=== PATIENT | male | born 1980 | race Caucasian/White ===

== ENCOUNTER 2020-12-22 18:59 | Emergency (ER) | payer OTHER ==
[~2020-12-22] VITALS: Ht 172.7 cm; Wt 73.5 kg
[2020-12-22 19:01] VITALS: BP_SYST 141
[2020-12-22] MEDS ORDERED: KETOROLAC TROMETHAMINE 60 MG/2 ML VIAL IM ONE (19:15)
[2020-12-22] MEDS ORDERED: MORPHINE 4 MG INJ. 4 MG/ML VIAL IM ONE (19:15)
--- NOTE | 2020-12-22 19:25 | NUR ---
Patient to ER bed 4 to gown for evaluation. Side rails up.
--- NOTE | 2020-12-22 19:40 | NUR ---
Dr. Holguin bedside for pt eval
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
--- NOTE | 2020-12-22 20:35 | NUR ---
Portable bedside X Rays , well tolerated
--- NOTE | 2020-12-22 21:35 | NUR ---
VSS, CT Scan well tolerated
[2020-12-22] MEDS ORDERED: HYDR-3917 PO ×2 (22:16→22:18)
[2020-12-22] MEDS ORDERED: IBUP-1969 PO (22:16)
[2020-12-22 22:30] VITALS: BP_SYST 132
--- NOTE | 2020-12-22 22:30 | NUR ---
Patient given written and verbal discharge instructions and verbalizes understanding. ER MD discussed with patient the results and treatment provided. Patient in stable condition. ID arm band removed. Rx of [place] and Ibuprofen given. Patient educated on pain management and to follow up with PMD. Pain Scale 0/10 Opportunity for questions provided and answered. Medication side effect fact sheet provided.
== END 2020-12-22 22:30 | disposition home or self-care (01) ==
LOC: SED 18:59
DX: S43.101A Unspecified dislocation of right acromioclavicular joint, initial encounter (principal); V86.56XA Driver of dirt bike or motor/cross bike injured in nontraffic accident, initial encounter; Y93.89 Activity, other specified; Y92.89 Other specified places as the place of occurrence of the external cause; Y99.8 Other external cause status
CPT/HCPCS: 70450; 71045; 71100; 73030; 76376; 96372; 99284; J1885; J2270

== ENCOUNTER 2021-12-21 10:59 | Emergency (ER) | payer OTHER ==
[~2021-12-21] VITALS: Ht 172.7 cm; Wt 68.0 kg
[~2021-12-21 10:59] MED LIST: IBUP-1969 PO
[2021-12-21 11:00] VITALS: BP_SYST 145
[2021-12-21] MEDS ORDERED: LIDOCAINE PATCH 5% 1 EA TP ONE (12:45)
[2021-12-21] MEDS ORDERED: ACETAMINOPHEN 500 MG TABLET PO ONE (12:45)
[2021-12-21] MEDS ORDERED: KETOROLAC TROMETHAMINE 30 MG VIAL IM ONE (12:45)
[2021-12-21] MEDS ORDERED: ACET-2634 PO (14:20)
[2021-12-21] MEDS ORDERED: NAPR-690 PO (14:20)
[2021-12-21 14:42] VITALS: BP_SYST 136
== END 2021-12-21 14:42 | disposition home or self-care (01) ==
LOC: SED 10:59
DX: M54.50 Low back pain, unspecified (principal); I10 Essential (primary) hypertension; Z79.899 Other long term (current) drug therapy
CPT/HCPCS: 99283; 96372; J1885

== ENCOUNTER 2022-04-26 04:21 | Emergency (ER) | payer OTHER ==
[~2022-04-26] VITALS: Ht 172.7 cm; Wt 72.6 kg
[~2022-04-26 04:21] MED LIST changes: +ACET-2634 PO; +NAPR-690 PO
--- NOTE | 2022-04-26 04:35 | NUR ---
Patient to ER bed 07 to gown for evaluation. Side rails up. Report given to DINH PAZ.
[2022-04-26 04:38] VITALS: BP_SYST 154
--- NOTE | 2022-04-26 04:50 | NUR ---
ER Dr. Rose at bedside examining patient.
[2022-04-26] MEDS ORDERED: ALBUTEROL SULFATE 0.083% 2.5 MG/3 ML VIAL.NEB INH ONE (05:00)
[2022-04-26] MEDS ORDERED: ALBMDI INH (05:11)
[2022-04-26] MEDS ORDERED: CETI10CA PO (05:11)
[2022-04-26] MEDS ORDERED: GUAI-723 PO (05:11)
--- NOTE | 2022-04-26 05:21 | NUR ---
# 20 gauge angiocath placed to L AC. Use of asceptic technique. Opsite placed over site. Blood return noted. Blood for lab drawn from site sent to lab. Flushed with 10 cc of normal saline. No evidence of infiltration noted. Patient tolerated well.
[2022-04-26 05:46] LABS: BASOPHILS # (AUTO) 0.1 K/uL (0.0-0.2); EOSINOPHILS # (AUTO) 0.2 K/uL (0.0-0.4); HEMATOCRIT 40.2 % (36-54); HEMOGLOBIN 13.6 g/dL (14.0-18.0); LYMPHOCYTES % (AUTO) 28.2 % (20.5-51.5); MEAN CORPUSCULAR HEMOGLOBIN 31 pg (27-31); MEAN CORPUSCULAR HGB CONC 34 % (32-36); MEAN CORPUSCULAR VOLUME 92 fL (79.0-98.0); MONOCYTES # (AUTO) 0.8 K/uL (0.0-1.0); MONOCYTES % (AUTO) 7.4 % (1.7-9.3); NEUTROPHILS # (AUTO) 6.6 K/uL (1.8-7.7); NEUTROPHILS % (AUTO) 61.4 % (40.0-70.0); PLATELET COUNT (AUTO) 310 K/uL (130-430); RED BLOOD CELL COUNT(AUTO) 4.36 MIL/uL (4.2-6.2); RED CELL DISTRIBUTION WIDTH 13.5 % (9.0-15.0); WHITE BLOOD COUNT (AUTO) 10.7 K/uL (4.8-10.8)
[2022-04-26 05:57] LABS: STREPTOCOCCUS A SCREEN (RAPID) NEGATIVE (NEGATIVE)
[2022-04-26 06:22] LABS: ANION GAP 11 (5-15); CALCIUM 8.7 mg/dL (8.4-11.0); CHLORIDE 106 mmol/L (98-107); CREATININE 0.85 mg/dL (0.55-1.30); GLUCOSE 115 mg/dL (70-99); UREA NITROGEN, BLOOD 12 mg/dL (8-21)
[2022-04-26 06:24] LABS: GFR AFRICAN AMERICAN 128 mL/min (>90)
[2022-04-26 06:31] LABS: ALANINE AMINOTRANSFERASE 19 U/L (12-78); ALBUMIN 3.5 g/dL (3.4-4.8); ASPARTATE AMINOTRANSFERASE 14 U/L (10-37); TOTAL BILIRUBIN 0.3 mg/dL (0.0-1.0)
--- NOTE | 2022-04-26 06:37 | NUR ---
Patient given written and verbal discharge instructions and verbalizes understanding. ER MD Dr. Rose discussed with patient the results and treatment provided. Patient in stable condition. ID arm band removed. IV catheter removed intact and dressing applied, no active bleeding. Rx given. Patient educated on pain management and to follow up with PMD. Pain Scale 0. Opportunity for questions provided and answered. Medication side effect fact sheet provided.
[2022-04-26 06:42] VITALS: BP_SYST 123
== END 2022-04-26 06:37 | disposition home or self-care (01) ==
LOC: SED 04:21
DX: J20.8 Acute bronchitis due to other specified organisms (principal); R07.9 Chest pain, unspecified; J02.9 Acute pharyngitis, unspecified; R05.9 Cough, unspecified; I10 Essential (primary) hypertension; F17.200 Nicotine dependence, unspecified, uncomplicated; F12.90 Cannabis use, unspecified, uncomplicated; F14.10 Cocaine abuse, uncomplicated; F15.10 Other stimulant abuse, uncomplicated; Z79.899 Other long term (current) drug therapy; Z20.822 Contact with and (suspected) exposure to COVID-19
CPT/HCPCS: 94640; 80053; 85025; 86403; 84484; 36415; 93005; 71045; 99285; 87081; 87804 ×2; 87426; J7613

== ENCOUNTER 2022-10-03 18:51 | Emergency (ER) | payer OTHER ==
[~2022-10-03] VITALS: Ht 175.3 cm; Wt 75.7 kg
[~2022-10-03 18:51] MED LIST changes: +ALBMDI INH; +CETI10CA PO; +GUAI-723 PO
[2022-10-03 18:54] VITALS: BP_SYST 153; PULSE 91; RESP 22; TEMP 98.3; O2SAT 99
[2022-10-03 20:09] LABS: BASOPHILS # (AUTO) 0.1 K/uL (0.0-0.2); BASOPHILS % (AUTO) 1.1 % (0.0-2.0); EOSINOPHILS # (AUTO) 0.2 K/uL (0.0-0.4); EOSINOPHILS % (AUTO) 2.6 % (0.0-4.0); HEMATOCRIT 43.8 % (36-54); HEMOGLOBIN 14.5 g/dL (14.0-18.0); LYMPHOCYTES # (AUTO) 3.3 K/uL (1.0-5.5); LYMPHOCYTES % (AUTO) 36.7 % (20.5-51.5); MEAN CORPUSCULAR HEMOGLOBIN 31 pg (27-31); MEAN CORPUSCULAR HGB CONC 33 % (32-36); MEAN CORPUSCULAR VOLUME 92 fL (79.0-98.0); MONOCYTES # (AUTO) 0.7 K/uL (0.0-1.0); MONOCYTES % (AUTO) 7.8 % (1.7-9.3); NEUTROPHILS # (AUTO) 4.6 K/uL (1.8-7.7); NEUTROPHILS % (AUTO) 51.8 % (40.0-70.0); PLATELET COUNT (AUTO) 307 K/uL (130-430); RED BLOOD CELL COUNT(AUTO) 4.75 MIL/uL (4.2-6.2); RED CELL DISTRIBUTION WIDTH 13.3 % (9.0-15.0)
[2022-10-03 20:23] LABS: ALANINE AMINOTRANSFERASE 18 U/L (12-78); ALBUMIN 3.9 g/dL (3.4-4.8); ANION GAP 10 (5-15); ASPARTATE AMINOTRANSFERASE 18 U/L (10-37); CHLORIDE 104 mmol/L (98-107); CREATININE 1.03 mg/dL (0.55-1.30); GFR AFRICAN AMERICAN 102 mL/min (>90); GLUCOSE 103 mg/dL (74-106); TOTAL BILIRUBIN 0.3 mg/dL (0.0-1.0); UREA NITROGEN, BLOOD 11 mg/dL (8-21)
[2022-10-03] MEDS ORDERED: HYDR-3698 PO (21:03)
[2022-10-03] MEDS ORDERED: ALBMDI INH (21:03)
[2022-10-03] MEDS ORDERED: FAMO-132 PO (21:17)
[2022-10-03 21:18] VITALS: BP_SYST 148; PULSE 89; RESP 20; TEMP 98; O2SAT 99
== END 2022-10-03 21:18 | disposition home or self-care (01) ==
LOC: SED 18:51
DX: R07.89 Other chest pain (principal); F41.9 Anxiety disorder, unspecified; K29.70 Gastritis, unspecified, without bleeding; R06.02 Shortness of breath; K21.9 Gastro-esophageal reflux disease without esophagitis; I10 Essential (primary) hypertension; F15.10 Other stimulant abuse, uncomplicated; Z91.018 Allergy to other foods; Z79.899 Other long term (current) drug therapy
CPT/HCPCS: 36415; 71045; 80053; 84484; 85025; 85379; 93005; 99285

== ENCOUNTER 2022-10-14 15:36 | Emergency (ER) | payer OTHER ==
[~2022-10-14] VITALS: Ht 172.7 cm; Wt 56.7 kg
[~2022-10-14 15:36] MED LIST changes: +FAMO-132 PO; +HYDR-3698 PO
[2022-10-14 15:50] VITALS: BP_SYST 133; PULSE 85; RESP 20; TEMP 98.3; O2SAT 98
[2022-10-14] MEDS ORDERED: IBUP-1971 PO (16:47)
[2022-10-14] MEDS ORDERED: TRAM50TA2 PO (16:47)
[2022-10-14] MEDS ORDERED: DIPHTH,PERTUSS(ACELL),TET VAC 0.5 ML VIAL (Tdap) I.M. ONE (17:00)
[2022-10-14] MEDS ORDERED: BACITRACIN 1 GM OINT TP ONE (17:00)
[2022-10-14 17:24] VITALS: BP_SYST 133; PULSE 85; RESP 20; TEMP 98.3; O2SAT 98
== END 2022-10-14 17:23 | disposition home or self-care (01) ==
LOC: SED 15:36
DX: S83.92XA Sprain of unspecified site of left knee, initial encounter (principal); S93.602A Unspecified sprain of left foot, initial encounter; K21.9 Gastro-esophageal reflux disease without esophagitis; I10 Essential (primary) hypertension; Z91.018 Allergy to other foods; Z79.899 Other long term (current) drug therapy; W18.42XA Slipping, tripping and stumbling without falling due to stepping into hole or opening, initial encounter; Y93.89 Activity, other specified; Y92.89 Other specified places as the place of occurrence of the external cause; Y99.8 Other external cause status
CPT/HCPCS: 73564; 90715; 99284